=== PATIENT | male | born 2000 | race Caucasian/White ===

== ENCOUNTER 2024-10-19 23:04 | Emergency (ER) | payer MEDICAID ==
[~2024-10-19] VITALS: Ht 167.6 cm; Wt 87.0 kg
[2024-10-20 00:03] VITALS: O2SAT 100
[2024-10-20 00:56] LABS: BASOPHILS % 0.5 % (0.0-2.0); EOSINOPHILS % 5.7 % (0.0-5.0); HEMATOCRIT. 48.6 % (42.0-52.0); HEMOGLOBIN. 16.2 g/dL (14.0-18.0); LYMPHOCYTES % 21.5 % (20.0-50.0); MEAN PLATELET VOLUME 8.3 fl (7.4-10.4); MONOCYTES % 8.1 % (2.0-8.0); NEUTROPHILS % 64.2 % (40.0-76.0); PLATELET 258 x1000/uL (130-400); RED BLOOD CELL COUNT 5.54 mill/uL (4.7-6.1); RED CELL DISTRIBUTION WIDTH 13.4 % (11.6-14.6)
[2024-10-20 01:07] LABS: CREATININE 0.9 mg/dL (0.6-1.3)
[2024-10-20 01:08] LABS: UREA NITROGEN BLOOD 8 mg/dL (9-23)
[2024-10-20 01:10] LABS: ASPARTATE AMINOTRANSFERASE 19 IU/L (<34); BILIRUBIN DIRECT 0.2 mg/dL (<=3.0); BILIRUBIN TOTAL 0.8 mg/dL (0.1-1.0); PROTEIN TOTAL 7.0 g/dL (6.0-8.3)
[2024-10-20] MEDS: SODIUM CHLORIDE 0.9% 1,000 ML IV ONE (02:03)
[2024-10-20] MEDS ORDERED: IOHEXOL-300 100 ML BOTTLE ONE (07:00)
[2024-10-20] MEDS ORDERED: ACETAMINOPHEN 325MG TABLET PO PRN ×2 (07:15)
[2024-10-20] MEDS ORDERED: ONDANSETRON HCL 4MG/2ML INJ IV PRN (07:15)
[2024-10-20] MEDS ORDERED: DOCUSATE SODIUM 100MG CAPSULE PO PRN (07:15)
[2024-10-20 14:28] VITALS: BP 116/72; PULSE 86; RESP 21; TEMP 37.1; O2SAT 100
== END 2024-10-20 14:30 | disposition home or self-care (01) ==
LOC: ER 23:04 → EDBEDREQ 10-20 02:29 → EDBEDREQTM 10-20 02:29 → ENRESERV 10-20 11:30 → CANBEDREQ 10-20 12:14 → ER 10-20 14:30
DX: R10.31 Right lower quadrant pain (principal)
CPT/HCPCS: 36415; 99285; 80076; 80048; 83690; 85025; 74177; 96360; 96361; Q9967; J7030; Z7610